=== PATIENT | male | born 1950 | race Caucasian/White ===

== ENCOUNTER → 2018-06-21 13:53 | Outpatient (CLI) | payer MEDICARE, OTHER, SELFPAY ==
--- NOTE | 2018-06-21 13:56 | ECHOCS_ITS ---
Reason For Study: HTN Procedure This was a 2D Doppler, Color Flow transthoracic echocardiogram. Contrast injection was performed. Exam performed in department. Left Ventricle Normal LV size. Left ventricular systolic function is normal. The estimated ejection fraction is 60 %. Transmitral diastolic flow velocities suggest mild (stage 1) diastolic dysfunction (reversed pattern). No regional wall motion abnormalities noted. Right Ventricle Normal RV size. Normal systolic function. Atria Normal left atrium. Normal right atrium. Mitral Valve Normal mitral valve. Tricuspid Valve Normal tricuspid valve. Mild tricuspid valve insufficiency. Pulmonary artery systolic pressure is 20 mmHg. Aortic Valve Normal aortic valve. Trisinus/trileaflet aortic valve. Pulmonic Valve The pulmonic valve is not well visualized. Great Vessels Mildly dilated aortic root. The pulmonary artery is normal size. Normal inferior vena cava. Pericardium/Pleural No pericardial effusion. Medication 22 gauge I.V. with prn adaptor inserted into right arm. Diluted definity 2ml given slow IV push to enhance endocardial definition. Performed a rapid injection of agitated mix of 9 cc saline and 1cc air to assess for atrial septal defect. MMode/2D Measurements & Calculations LVIDd: 4.3 cm IVSd: 1.1 cm LVOT diam: 2.0 cm LVIDs: 2.9 cm LVPWd: 1.2 cm LVOT area: 3.1 cm2 FS: 32.9 % Ao root diam: 3.9 cm LAV(MOD-bp): 48.2 ml LA dimension: 3.9 cm LAV(MOD-bp) Indexed: 26.8 ml/m2 LA A4 area: 13.4 cm2 LAV(MOD-sp2): 54.6 ml LAV(MOD-sp4): 32.6 ml RA A4 area: 11.6 cm2 Time Measurements MV dec time: 0.22 sec Doppler Measurements & Calculations MV E max kendrick: 67.9 cm/sec Med Peak E' Kendrick: 6.2 cm/sec MV V2 max: 103.0 cm/sec MV A max kendrick: 94.0 cm/sec E/E' med: 11.0 MV max P.2 mmHg MV E/A: 0.72 MV V2 mean: 51.9 cm/sec MV mean P.3 mmHg MV V2 VTI: 30.1 cm MVA(VTI): 2.1 cm2 MV P1/2t max kendrick: 87.6 cm/sec Ao V2 max: 118.5 cm/sec LV V1 max: 106.6 cm/sec MV P1/2t: 100.8 msec Ao max P.6 mmHg LV V1 max P.5 mmHg MV dec slope: 254.7 cm/sec2 Ao V2 mean: 76.6 cm/sec LV V1 mean P.1 mmHg MVA(P1/2t): 2.2 cm2 Ao mean P.7 mmHg LV V1 mean: 67.4 cm/sec Ao V2 VTI: 21.3 cm LV V1 VTI: 20.8 cm ARIANE(I,D): 3.0 cm2 ARIANE(V,D): 2.8 cm2 SV(LVOT): 64.1 ml PA V2 max: 98.2 cm/sec TR max kendrick: 203.6 cm/sec TR max P.6 mmHg Interpretation Summary Normal LV size. Left ventricular systolic function is normal. The estimated ejection fraction is 60 %. Transmitral diastolic flow velocities suggest mild (stage 1) diastolic dysfunction (reversed pattern). Mildly dilated aortic root. Contrast injection was performed. Ordering Physician: Max Rios Referring Physician: Max Rios Performed By: Anuel Hercules RCS
== END ==
PROVIDERS: Family Provider Nurse Practitioner Family; PCP Nurse Practitioner Family; Visit Provider Internal Medicine Cardiovascular Disease
DX: I10 Essential (primary) hypertension (principal); R07.9 Chest pain, unspecified
CPT/HCPCS: 93306; Q9957; A4216; C8929